=== PATIENT | female | born 1995 | race Two or more races ===

== ENCOUNTER 2018-04-16 10:29 | Emergency (ER) | payer MEDICAID ==
[~2018-04-16] VITALS: Ht 152.4 cm; Wt 62.8 kg
--- NOTE | 2018-04-16 10:45 | NUR ---
PT BIBSELF FROM HOME, C/O DIARRHEA AND HEADACHE X5 DAYS, +N/V, AAOX4, RESP EVEN AND UNLABORED, NO SOB, NAD NOTED, VSS, PENDING ER PROVIDER EVAL
[2018-04-16 10:50] VITALS: BP 121/65
[2018-04-16] MEDS ORDERED: ONDANSETRON 4 MG TAB.RAPDIS ONE (11:16)
[2018-04-16] MEDS ORDERED: ONDANSETRON 4 MG TAB.RAPDIS SL ONE (11:30)
--- NOTE | 2018-04-16 11:45 | NUR ---
PT AMBULATORY WITH STEADY GAIT
--- NOTE | 2018-04-16 13:10 | NUR ---
Patient discharged to home in stable condition. Written and verbal after care instructions given. Patient verbalizes understanding of instruction.
== END 2018-04-16 13:23 | disposition home or self-care (01) ==
LOC: ER 10:30
DX: R11.2 Nausea with vomiting, unspecified (principal); R19.7 Diarrhea, unspecified; R10.84 Generalized abdominal pain; Z98.890 Other specified postprocedural states
CPT/HCPCS: 99282; A4606; Q0162; Z7610